=== PATIENT | male | born 1950 | race African-American/Black ===

== ENCOUNTER 2017-03-14 11:27 | Emergency (ER) | payer MEDICARE ==
[~2017-03-14] VITALS: Ht 165.1 cm; Wt 54.4 kg
[2017-03-14] MEDS ORDERED: IBUPROFEN 400 MG TABLET ONE (12:21)
[2017-03-14] MEDS ORDERED: KETOROLAC TROMETHAMINE INJ 30 MG/ML VIAL ONE (12:28)
--- NOTE | 2017-03-14 12:28 | NUR ---
PT TO RADIOLOGY FOR R SHOULDER XRAY.
[2017-03-14] MEDS ORDERED: IBUPROFEN 400 MG TABLET PO ONE (12:30)
[2017-03-14] MEDS ORDERED: KETOROLAC TROMETHAMINE INJ 60 MG/2 ML VIAL IM ONE (12:30)
== END 2017-03-14 13:21 | disposition home or self-care (01) ==
LOC: ER 11:29
DX: S49.91XA Unspecified injury of right shoulder and upper arm, initial encounter (principal); M75.91 Shoulder lesion, unspecified, right shoulder; X58.XXXA Exposure to other specified factors, initial encounter; Y92.89 Other specified places as the place of occurrence of the external cause; Y93.89 Activity, other specified; Y99.8 Other external cause status
CPT/HCPCS: 73030; 96372; 99284; A4606; J1885; Z7610